=== PATIENT | female | born 1995 | race Caucasian/White ===

== ENCOUNTER 2016-09-07 20:52 | Emergency (ER) | payer OTHER ==
[2016-09-07 21:23] LABS: BILIRUBIN,URINE NEGATIVE (NEGATIVE)
[2016-09-07] MEDS ORDERED: ACETAMINOPHEN 325 MG TABLET PO STA (21:30)
[2016-09-07 21:33] LABS: HCG UR QUAL POSITIVE; UA w/ MICROSCOPIC CHARGE YES
--- NOTE | 2016-09-07 21:33 | ED Physician Documentation ---
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 Patient states that her lmp was last month about 5 weeks ago. Patient has taken 3 positive home tests. patient saw her pmd today who comfirmed with a urine hcg in the office. Patient states that this evening she had some abdominal cramping and vaginal spotting. Patient states that her pain is across her lower abdomen but is worse on the right hand side. Review of Systems Constitutional: denies: Fever, Chills Eyes: denies: Loss of vision Ears: denies: Ear pain Nose: denies: Rhinorrhea / runny nose, Congestion, Epistaxis Throat: denies: Oral lesions / sores, Sore throat Cardiac: denies: Chest pain / pressure, Palpitations, Calf pain GI: reports: Abdominal Pain, Nausea, Vomiting. denies: Constipation, Diarrhea : reports: Vaginal bleeding. denies: Dysuria, Frequency Skin: denies: Rash, Lesions Musculoskeletal: denies: Extremity pain Neurologic: denies: Generalized weakness, Focal weakness, Numbness Immunocompromised: denies: Immunocompromised PD PAST MEDICAL HISTORY - Past Medical History Past Medical History: No - Past Surgical History Past Surgical History: No - Allergies Allergies/Adverse Reactions: Allergies Allergy/AdvReac Type Severity Reaction Status Date / Time No Known Drug Allergies Allergy Verified 09/07/16 21:01 - Social History Does the pt smoke?: No Smoking Status: Never smoker Does the pt drink ETOH?: No Does the pt have substance abuse?: No - Immunizations Immunizations are current?: Yes - POLST Patient has POLST: No PD ED PE NORMAL - Vitals Vital signs reviewed: Yes - General General: Alert and oriented X 3, Well developed/nourished - HEENT HEENT: Atraumatic, PERRL, Pharynx benign - Neck Neck: Supple, no meningeal sign, No JVD - Cardiac Cardiac: RRR, No murmur, No rub - Respiratory Respiratory: No respiratory distress, Clear bilaterally - Abdomen Abdomen: Soft, Non tender, Non distended - Derm Derm: Normal color, Warm and dry, No rash - Extremities Extremities: No deformity - Neuro Neuro: Alert and oriented X 3, 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, No motor deficit, No sensory deficit, Normal speech - Psych Psych: Normal mood, Normal affect PD ED PE EXPANDED - Abdomen Abdomen: Tender to palpation, RLQ, Suprapubic - Female Female : Adnexal Tenderness Results - Vitals Vitals: Vital Signs - 24 hr 09/07/16 09/07/16 20:58 23:17 Temperature 36.8 C Heart Rate 91 66 Respiratory 18 16 Rate Blood Pressure 129/75 108/64 O2 Saturation 100 96 Oxygen O2 Source Room air - Labs Labs: Laboratory Tests 09/07/16 09/07/16 09/07/16 21:06 21:31 21:31 WBC 13.1 H RBC 4.55 Hgb 13.3 Hct 40.2 MCV 88.3 MCH 29.2 MCHC 33.1 RDW 13.2 Plt Count 206 MPV 10.9 H Neut # 8.4 H Lymph # 3.2 [place] # 1.1 H Eos # 0.2 Baso # 0.0 Absolute Nucleated RBC 0.00 Nucleated RBCs 0.0 Sodium 137 Potassium 3.6 Chloride 104 Carbon Dioxide 24 Anion Gap 9.0 BUN 14 Creatinine 0.7 Estimated GFR (MDRD) 106 Glucose 97 Calcium 9.7 Total Bilirubin 0.6 AST 18 ALT 15 Alkaline Phosphatase 75 Total Protein 7.3 Albumin 4.3 Globulin 3.0 Albumin/Globulin Ratio 1.4 Lipase 22 HCG, Quant Urine Color YELLOW Urine Clarity CLEAR Urine pH 6.0 Ur Specific [place] 1.025 Urine Protein NEGATIVE Urine Glucose (UA) NEGATIVE Urine Ketones NEGATIVE Urine Occult Blood MODERATE H Urine Nitrite NEGATIVE Urine Bilirubin NEGATIVE Urine Urobilinogen 1 (NORMAL) Ur Leukocyte Esterase NEGATIVE Urine RBC 6-10 H Urine WBC 0-3 Ur Squamous Epith Cells FEW Squamous Urine Bacteria Few Ur Microscopic Review INDICATED Urine Culture Comments NOT INDICATED Urine HCG, Qual POSITIVE Blood Type 09/07/16 09/07/16 21:31 21:35 WBC RBC Hgb Hct MCV MCH MCHC RDW Plt Count MPV Neut # Lymph # [place] # Eos # Baso # Absolute Nucleated RBC Nucleated RBCs Sodium Potassium Chloride Carbon Dioxide Anion Gap BUN Creatinine Estimated GFR (MDRD) Glucose Calcium Total Bilirubin AST ALT Alkaline Phosphatase Total Protein Albumin Globulin Albumin/Globulin Ratio Lipase HCG, Quant 178.70 Urine Color Urine Clarity Urine pH Ur Specific [place] Urine Protein Urine Glucose (UA) Urine Ketones Urine Occult Blood Urine Nitrite Urine Bilirubin Urine Urobilinogen Ur Leukocyte Esterase Urine RBC Urine WBC Ur Squamous Epith Cells Urine Bacteria Ur Microscopic Review Urine Culture Comments Urine HCG, Qual Blood Type A POSITIVE - Rads (name of study) pelvic and abdominal ultrasound Radiology: Final report received (appendix not visualized, but no inflammatory changeds, normal appearance of uterus and ovaries.) PD MEDICAL DECISION MAKING - ED course Complexity details: reviewed results, re-evaluated patient, considered differential, d/w patient, d/w family ED course: Patient was seen and examined at bedside. IV access was gained and labs were drawn. Urine was collected. Patient was treated with tylenol for pain. Patient was found to have a leukocytosis and rlq pain, but beta was only 179, so abdominal ultrasound was ordered. patient showed no signs of appendicitis. Patient and family were made aware of the findings. Patient and family were given detailed discharge and return instructions. Patient required no further work up and was stable for discharge with outpatient follow up. Departure - Departure Disposition: 01 Home, Self Care Clinical Impression: Vaginal bleeding in Condition: Good Instructions: Bleeding Early Preg Follow-Up: primary,care provider [Other] - Tomorrow (call your pmd/ob to schedule a follow up beta hcg in 48-72 hours) Comments: Your diagnostics today were inconclusive. your beta hcg level was below 200 and so we would not expect to see anything on ultrasound. Your symptoms could be caused by implantation bleeding but more serious causes cannot be ruled out. You will need to follow up with your ob for repeat beta hcg in 48-72 hours. You may return to the emergency department for worsening bleeding, severe pain, syncope new, worsening or uncontrollable symptoms. Discharge Date/Time: 09/07/16 23:41
[2016-09-07] MEDS ORDERED: ACETAMINOPHEN 500 MG TABLET PO ONE ×2 (21:38→21:41)
[2016-09-07 21:44] LABS: WBC,URINE 0-3 /HPF (0-5)
[2016-09-07 21:45] LABS: UR CULTURE IF IND NOT INDICATED
[2016-09-07 21:49] LABS: BASOPHILS % (AUTO) 0.3 %; EOSINOPHILS # (AUTO) 0.2 10^3/uL (0.0-0.7); EOSINOPHILS % (AUTO) 1.9 %; HCT - HEMATOCRIT 40.2 % (37.0-47.0); HGB - HEMOGLOBIN 13.3 g/dL (12.0-16.0); LYMPHOCYTES # (AUTO) 3.2 10^3/uL (1.5-3.5); LYMPHOCYTES % (AUTO) 24.6 %; MEAN CORPUSCULAR HEMOGLOBIN 29.2 pg (27.0-31.0); MEAN CORPUSCULAR HGB CONC 33.1 g/dL (32.0-36.0); MEAN CORPUSCULAR VOLUME 88.3 fL (81.0-99.0); MEAN PLATELET VOLUME 10.9 fL (7.9-10.8); MONOCYTES # (AUTO) 1.1 10^3/uL (0.0-1.0); MONOCYTES % (AUTO) 8.5 %; NEUTROPHILS # (AUTO) 8.4 10^3/uL (1.5-6.6); NEUTROPHILS % (AUTO) 64.7 %; RED BLOOD COUNT 4.55 10^6/uL (4.20-5.40); RED CELL DISTRIBUTION WIDTH 13.2 % (12.0-15.0); UNCORRECTED WHITE BLOOD COUNT 13.1 x10^3/uL; WHITE BLOOD COUNT 13.1 x10^3/uL (4.8-10.8)
[2016-09-07 22:05] LABS: ALBUMIN/GLOBULIN RATIO 1.4 (1.0-2.2); BILIRUBIN,TOTAL 0.6 mg/dL (0.2-1.0); CALCIUM 9.7 mg/dL (8.5-10.3); CREATININE 0.7 mg/dL (0.4-1.0); POTASSIUM 3.6 mmol/L (3.5-5.0); TOTAL PROTEIN 7.3 g/dL (6.7-8.2)
[2016-09-07 23:18] VITALS: BP 108/64
--- NOTE | 2016-09-07 23:18 | Ultrasound Preliminary Report ---
Exam: US Abdomen Limited IMPRESSION: Appendix is not visualized. No significant right lower quadrant sonographic abnormalities . [facility] SITE ID: [id number]
--- NOTE | 2016-09-07 23:21 | Ultrasound Report ---
EXAM: Limited ABDOMINAL ultrasound EXAM DATE: 09/07/2016 10:54 PM. CLINICAL HISTORY: Right lower pain, leukocytosis. COMPARISON: None. TECHNIQUE: Real-time scanning was performed of the right lower quadrant with static images obtained. FINDINGS: APPENDIX: Not seen. COMPRESSION TOLERATED: Moderate ASSOCIATED FINDINGS: Lymph Nodes Seen: No Free Fluid/Complex Fluid Seen: None Thickened Bowel Wall Seen: None Other: None. IMPRESSION: Appendix is not visualized. No significant right lower quadrant sonographic abnormalities . [facility] Referring Provider Line: [phone] SITE ID: [id number]
--- NOTE | 2016-09-07 23:24 | Ultrasound Preliminary Report ---
Exam: US OB First Trimester IMPRESSION: 1. No intrauterine gestational sac demonstrated. Quantitative beta-hCG value is reported at 179 units . Typically, an intrauterine gestational sac is visualized at quantitative beta hCG values of 2000. 2. Otherwise normal appearance of the uterus and ovaries. [facility] SITE ID: [id number]
--- NOTE | 2016-09-07 23:27 | Ultrasound Report ---
EXAM: FIRST TRIMESTER OBSTETRIC ULTRASOUND (Less than 11 weeks) EXAM DATE: 09/07/2016 10:54 PM. CLINICAL HISTORY: , vaginal bleeding. Right adnexal tenderness. COMPARISONS: None. TECHNIQUE: Transabdominal ultrasound examination with static image documentation. CLINICAL DATES: LMP: 07/27/2016. Estimated gestational age: 6 weeks 0 days. Estimated due date: 05/03/2017. Uterus: Uterus is normal in position and normal in configuration. Uterus measures 7.5 x 3.8 x 4.6 cm . No evident uterine masses. Endometrium: No intrauterine gestational sac demonstrated. Endometrium measures 9.7 mm without suspic ious abnormality. Cervix: No suspicious lesion. Right Ovary: Normal in appearance measuring 3.1 x 2.5 x 2.0 cm. Left Ovary: Normal in appearance measuring 2.7 x 1.4 x 1.7 cm. Fluid: No signficant free fluid. Other: No other significant findings. IMPRESSION: 1. No intrauterine gestational sac demonstrated. Quantitative beta-hCG value is reported at 179 units . Typically, an intrauterine gestational sac is visualized at quantitative beta hCG values of 2000. 2. Otherwise normal appearance of the uterus and ovaries. [facility] Referring Provider Line: [phone] SITE ID: [id number]
== END 2016-09-07 23:41 | disposition home or self-care (01) ==
LOC: ED 20:52
DX: O20.9 Hemorrhage in early pregnancy, unspecified (principal); Z3A.01 Less than 8 weeks gestation of pregnancy
CPT/HCPCS: 36415; 76705; 76801; 80053; 81001; 81025; 83690; 84702; 85025; 86900; 86901; 99283; 99284; A9270; 81003; 87086

== ENCOUNTER 2016-09-09 08:53 | Emergency (ER) | payer OTHER ==
--- NOTE | 2016-09-09 09:53 | ED Physician Documentation ---
History of Present Illness - Stated complaint Stated Complaint: FEMALE /4WKS PG - Chief complaint Chief Complaint: Abd Pain - Additonal information Additional information: hx from pt LMP 4/6 approx 6 weeks EGA by dates seen 48hr ago for spotting and RLQ pain quant 178 sono non diag A + advised to fup OB for serial quant [place] be seen [place] September inc bleeding so back to ER pain midline now Review of Systems Constitutional: denies: Fever GI: reports: Abdominal Pain : reports: Vaginal bleeding, Now EGA Endocrine: denies: Easy bruising / bleeding Immunocompromised: denies: Immunocompromised PD PAST MEDICAL HISTORY - Past Surgical History Past Surgical History: No - Allergies Allergies/Adverse Reactions: Allergies Allergy/AdvReac Type Severity Reaction Status Date / Time No Known Drug Allergies Allergy Verified 09/09/16 10:23 - Social History Does the pt smoke?: No Smoking Status: Never smoker Does the pt drink ETOH?: No Does the pt have substance abuse?: No - Immunizations Immunizations are current?: Yes - POLST Patient has POLST: No PD ED PE NORMAL - Vitals Vital signs reviewed: Yes - Cardiac Cardiac: RRR - Respiratory Respiratory: No respiratory distress, Clear bilaterally - Abdomen Abdomen: Soft, Other (mild suprapubic TTP) - Neuro Neuro: Alert and oriented X 3 Results - Vitals Vitals: Vital Signs - 24 hr 09/09/16 09/09/16 08:57 11:23 Temperature 36.5 C Heart Rate 93 76 Respiratory 20 20 Rate Blood Pressure 118/76 117/68 O2 Saturation 98 97 Oxygen O2 Source Room air - Labs Labs: Laboratory Tests 09/09/16 09:40 HCG, Quant 104.30 - Rads (name of study) OB sono + TV Radiology: See rad report (no IUP) PD MEDICAL DECISION MAKING - ED course ED course: dropping quant open os neg sono = spont AB A+ no rhogam Departure - Departure Disposition: 01 Home, Self Care Clinical Impression: Spontaneous miscarriage Condition: Good Instructions: ED Miscarriage Completed Follow-Up: DONNY Gao [Provider Group] (for a recheck Sunday or Sunday ) Forms: Activity restrictions
--- NOTE | 2016-09-09 11:39 | Ultrasound Preliminary Report ---
Exam: US OB First Trimester IMPRESSION: 1. No intrauterine gestation demonstrated. Differential diagnosis includes very early intrauterine ge station, spontaneous and ectopic . Clinical and laboratory correlation recommended. 2. Otherwise, unremarkable pelvic ultrasound. [facility] SITE ID: [id number]
--- NOTE | 2016-09-09 11:41 | Ultrasound Report ---
REVISED: THIS REPORT WAS ORIGINALLY SIGNED ON 09/09/2016 @ 1141 ORDERS LINKED ON 09/24/2016 EXAM: FIRST TRIMESTER OBSTETRIC ULTRASOUND (Less than 11 weeks) EXAM DATE: 09/09/2016 11:08 AM. CLINICAL HISTORY: Early preg pain bleed concern for ectopic. LMP: 07/27/2016. COMPARISONS: 09/07/2016. TECHNIQUE: Transabdominal and transvaginal ultrasound examination with static image documentation. CLINICAL DATES: EGA 6 weeks 2 days with LORNA 05/03/2017 based on LMP. ASSESSMENT: Gestational Sac: None demonstrated. Embryo: Not demonstrated. Cardiac activity: Not demonstrated. Yolk sac: Not demonstrated. MATERNAL STRUCTURES: Uterus: Anteverted/Retroverted. Unremarkable. Cervix: Closed. Right Ovary: 2.8 x 1.8 x 2.3 cm, volume 6.0 cc. Normal echotexture and blood flow. 0.9 cm simple follicle. Left Ovary: 2.3 x 1.3 x 1.5 cm, volume 2.9 cc. Unremarkable. Free Fluid: None. Other: None. IMPRESSION: 1. No intrauterine gestation demonstrated. Differential diagnosis includes very early intrauterine gestation, spontaneous and ectopic . Clinical and laboratory correlation recommended. 2. Otherwise, unremarkable pelvic ultrasound. [facility] Referring Provider Line: [phone] SITE ID: [id number]
[2016-09-09 12:31] VITALS: BP 133/88
== END 2016-09-09 12:32 | disposition home or self-care (01) ==
LOC: ED 08:53
DX: O03.9 Complete or unspecified spontaneous abortion without complication (principal)
CPT/HCPCS: 36415; 76801; 76817; 84702; 87491; 87591; 99284

== ENCOUNTER 2016-09-11 15:23 | Emergency (ER) | payer OTHER | END 2016-09-11 17:21 | disposition home or self-care (01) | DX: O03.9 Complete or unspecified spontaneous abortion without complication (principal); F43.21 Adjustment disorder with depressed mood; R03.0 Elevated blood-pressure reading, without diagnosis of hypertension ==

== ENCOUNTER 2017-10-14 | Emergency (ER) | END 2017-10-15 01:05 | disposition home or self-care (01) ==

== ENCOUNTER 2017-12-05 17:52 | Emergency (ER) | payer OTHER ==
[2017-12-05] MEDS ORDERED: predniSONE 20 MG TABLET PO STA (20:06)
--- NOTE | 2017-12-05 20:08 | ED Physician Documentation ---
PD HPI LOWER EXT INJURY - Stated complaint Stated Complaint: LT LEG INSECT BITE - Chief complaint Chief Complaint: Ext Problem - History obtained from History obtained from: Patient - History of Present Illness PD HPI LOW EXT INJURY LOCATION: Left (She got a bug bite on her left leg while walking the dog yesterday was much smaller yesterday but large today. No shortness of breath, chest pain, throat pain, Or other rash.) Review of Systems Constitutional: denies: Fever, Chills GI: denies: Abdominal Pain, Nausea, Vomiting : denies: Now EGA PD PAST MEDICAL HISTORY - Past Medical History Past Medical History: No - Past Surgical History Past Surgical History: No - Present Medications Home Medications: Ambulatory Orders Medication Instructions Recorded Confirmed predniSONE [Deltasone] 60 mg PO DAILY 3 Days tablet 12/05/17 - Allergies Allergies/Adverse Reactions: Allergies Allergy/AdvReac Type Severity Reaction Status Date / Time No Known Drug Allergies Allergy Verified 12/05/17 17:58 - Social History Does the pt smoke?: No Smoking Status: Never smoker Does the pt drink ETOH?: Yes Does the pt have substance abuse?: No - Immunizations Immunizations are current?: Yes - POLST Patient has POLST: No PD ED PE NORMAL - Vitals Vital signs reviewed: Yes - General General: Alert and oriented X 3, No acute distress - Derm Derm: Other (There is a well-demarcated area of angioedema consistent with bug bite measuring about the size of the palm over the left posterior thigh.) - Neuro Neuro: Alert and oriented X 3, Normal speech Results - Vitals Vitals: Vital Signs - 24 hr 12/05/17 17:56 Temperature 36.2 C L Heart Rate 55 L Respiratory 16 Rate Blood Pressure 126/66 O2 Saturation 97 Oxygen O2 Source Room air PD MEDICAL DECISION MAKING - Sepsis Event Vital Signs: Vital Signs - 24 hr 12/05/17 17:56 Temperature 36.2 C L Heart Rate 55 L Respiratory 16 Rate Blood Pressure 126/66 O2 Saturation 97 Oxygen O2 Source Room air Departure - Departure Disposition: 01 Home, Self Care Clinical Impression: Insect bite Qualifiers: Encounter type: initial encounter Qualified Code(s): W57.XXXA - Bitten or stung by nonvenomous insect and other nonvenomous arthropods, initial encounter Condition: Good Record reviewed to determine appropriate education?: Yes Instructions: ED Bite Sting Insect Local Allergic React Prescriptions: predniSONE [Deltasone] 60 mg PO DAILY 3 Days tablet Comments: Call your doctor to arrange a follow-up appointment, make the next available appointment. In the interim, return anytime if worse or if new symptoms develop.
[2017-12-05 20:22] VITALS: BP 114/68
== END 2017-12-05 20:22 | disposition home or self-care (01) ==
LOC: ED 17:52
DX: S70.362A Insect bite (nonvenomous), left thigh, initial encounter (principal); W57.XXXA Bitten or stung by nonvenomous insect and other nonvenomous arthropods, initial encounter; Y93.K1 Activity, walking an animal
CPT/HCPCS: 99283; J7512

== ENCOUNTER 2018-01-05 11:03 | Emergency (ER) | payer OTHER ==
--- NOTE | 2018-01-05 12:27 | ED Physician Documentation ---
PD HPI ABD PAIN - Stated complaint Stated Complaint: WEAKNESS/DIZZY/CRAMPING ON LT SIDE - Chief complaint Chief Complaint: Abd Pain - History obtained from History obtained from: Patient, Family - History of Present Illness Timing - onset: How many days ago (3) Timing - duration: Days (3) Timing - details: Gradual onset Pain level max: 5 Pain level now: 4 Quality: Cramping, Aching, Pain Location: LLQ Radiation: No: Chest, , Lower back, Left flank, Left shoulder, Right flank, Right shoulder, Upper back Improved by: Laying still Worsened by: Moving, Palpation Associated symptoms: Nausea, Vomiting. No: Fever, Hematemesis, Diarrhea, Constipation, Melena, Hematochezia, Dysuria, Hematuria, Vaginal bleeding, Vaginal dc - Additional information Additional information: , approx 6 weeks EGA. Review of Systems Constitutional: denies: Fever, Chills Ears: denies: Ear pain Nose: denies: Rhinorrhea / runny nose, Congestion Throat: denies: Sore throat Respiratory: denies: Cough GI: reports: Nausea, Vomiting. denies: Diarrhea Skin: denies: Rash Musculoskeletal: denies: Neck pain, Back pain Neurologic: denies: Headache PD PAST MEDICAL HISTORY - Past Medical History Past Medical History: No - Past Surgical History Past Surgical History: No - Present Medications Home Medications: Ambulatory Orders Medication Instructions Recorded Confirmed Pnv95/Ferrous Fumarate/FA 1 each PO DAILY 01/05/18 01/05/18 [ Formula] - Allergies Allergies/Adverse Reactions: Allergies Allergy/AdvReac Type Severity Reaction Status Date / Time No Known Drug Allergies Allergy Verified 01/05/18 11:11 - Social History Does the pt smoke?: No Smoking Status: Never smoker Does the pt drink ETOH?: No Does the pt have substance abuse?: No - Immunizations Immunizations are current?: Yes - POLST Patient has POLST: No PD ED PE NORMAL - Vitals Vital signs reviewed: Yes - General General: Alert and oriented X 3, No acute distress - HEENT HEENT: Moist mucous membranes - Neck Neck: Supple, no meningeal sign - Cardiac Cardiac: RRR - Respiratory Respiratory: No respiratory distress, Clear bilaterally - Abdomen Abdomen: Soft, Non tender, Non distended - Back Back: No spinal TTP - Derm Derm: Warm and dry - Extremities Extremities: No edema - Neuro Neuro: Alert and oriented X 3 - Psych Psych: Normal mood, Normal affect Results - Vitals Vitals: Vital Signs - 24 hr 01/05/18 01/05/18 01/05/18 11:07 12:38 14:37 Temperature 37 C Heart Rate 63 77 70 Respiratory 18 14 16 Rate Blood Pressure 120/77 153/89 H 120/74 O2 Saturation 99 98 98 Oxygen O2 Source Room air - Labs Labs: Laboratory Tests 01/05/18 01/05/18 01/05/18 12:38 12:39 12:39 WBC 10.9 H RBC 4.65 Hgb 13.9 Hct 41.4 MCV 89.1 MCH 29.9 MCHC 33.6 RDW 13.4 Plt Count 230 MPV 9.9 Neut # (Auto) 7.6 H Lymph # (Auto) 2.4 [place] # (Auto) 0.7 Eos # (Auto) 0.2 Baso # (Auto) 0.0 Absolute Nucleated RBC 0.01 Nucleated RBC % 0.1 Sodium 135 Potassium 3.6 Chloride 102 Carbon Dioxide 25 Anion Gap 8.0 BUN 7 Creatinine 0.7 Estimated GFR (MDRD) 104 Glucose 96 Calcium 9.2 Total Bilirubin 0.5 AST 19 ALT 14 Alkaline Phosphatase 60 Total Protein 7.5 Albumin 4.2 Globulin 3.3 Albumin/Globulin Ratio 1.3 Lipase 28 HCG, Quant Urine Color YELLOW Urine Clarity CLEAR Urine pH 6.5 Ur Specific [place] 1.020 Urine Protein NEGATIVE Urine Glucose (UA) NEGATIVE Urine Ketones [place]ACE Urine Occult Blood NEGATIVE Urine Nitrite NEGATIVE Urine Bilirubin NEGATIVE Urine Urobilinogen 0.2 (NORMAL) Ur Leukocyte Esterase NEGATIVE Ur Microscopic Review NOT INDICATED Urine Culture Comments NOT INDICATED 01/05/18 12:39 WBC RBC Hgb Hct MCV MCH MCHC RDW Plt Count MPV Neut # (Auto) Lymph # (Auto) [place] # (Auto) Eos # (Auto) Baso # (Auto) Absolute Nucleated RBC Nucleated RBC % Sodium Potassium Chloride Carbon Dioxide Anion Gap BUN Creatinine Estimated GFR (MDRD) Glucose Calcium Total Bilirubin AST ALT Alkaline Phosphatase Total Protein Albumin Globulin Albumin/Globulin Ratio Lipase HCG, Quant 96124.00 Urine Color Urine Clarity Urine pH Ur Specific [place] Urine Protein Urine Glucose (UA) Urine Ketones Urine Occult Blood Urine Nitrite Urine Bilirubin Urine Urobilinogen Ur Leukocyte Esterase Ur Microscopic Review Urine Culture Comments - Rads (name of study) pelvic US Radiology: Prelim report reviewed, EMP read contemporaneously, See rad report (Single viable intrauterine at EGA 5 weeks 6 days with LORNA 09/01/2018 based on crown-rump length, which is concordant with clinical dates. ) PD MEDICAL DECISION MAKING - ED course Complexity details: reviewed results, re-evaluated patient, considered differential, d/w patient, d/w family ED course: Patient is a 22-year-old female who presents to the emergency department with abdominal pain and early . She has an IUP on ultrasound approximately 5 weeks and 6 days old. This is concordant with her dates. She is tolerating p.o. without difficulty. Abdomen is soft, nontender nondistended on serial exam. No evidence of ectopic. Will have her follow-up with her OB for further care. Patient counseled regarding signs and symptoms for which I believe and urgent re-evaluation would be necessary. Patient with good understanding of and agreement to plan and is comfortable going home at this time This document was made in part using voice recognition software. While efforts are made to proofread this document, sound alike and grammatical errors may occur. - Sepsis Event Vital Signs: Vital Signs - 24 hr 01/05/18 01/05/18 01/05/18 11:07 12:38 14:37 Temperature 37 C Heart Rate 63 77 70 Respiratory 18 14 16 Rate Blood Pressure 120/77 153/89 H 120/74 O2 Saturation 99 98 98 Oxygen O2 Source Room air Departure - Departure Disposition: 01 Home, Self Care Clinical Impression: Abdominal pain affecting Qualifiers: Weeks of gestation: less than 8 weeks Qualified Code(s): Z3A.01 - Less than 8 weeks gestation of Condition: Good Instructions: ED Preg Established Normal Sxs Follow-Up: SARA FAUSTIN PA-C [Primary Care Provider] - Within 1 week Comments: Return if you worsen. You are approximately 5w4d . Drink plenty of fluids. Discharge Date/Time: 01/05/18 15:11
[2018-01-05] MEDS ORDERED: METOCLOPRAMIDE 10 MG TABLET PO STA (12:40)
[2018-01-05 12:58] LABS: BILIRUBIN,URINE NEGATIVE (NEGATIVE); GLUCOSE, URINE (UA) NEGATIVE (NEGATIVE); KETONES,URINE (UA) TRACE mg/dL (NEGATIVE); LEUKOCYTE ESTERASE, URINE NEGATIVE (NEGATIVE); NITRITE,URINE NEGATIVE (NEGATIVE); OCCULT BLOOD,URINE NEGATIVE (NEGATIVE); PH,URINE 6.5 PH (5.0-7.5); PROTEIN,URINE NEGATIVE (NEGATIVE); UROBILINOGEN,URINE 0.2 (NORMAL) E.U./dL (NORMAL)
[2018-01-05 12:58] LABS: BASOPHILS % (AUTO) 0.4 %; EOSINOPHILS # (AUTO) 0.2 10^3/uL (0.0-0.7); EOSINOPHILS % (AUTO) 1.8 %; HGB - HEMOGLOBIN 13.9 g/dL (12.0-16.0); LYMPHOCYTES # (AUTO) 2.4 10^3/uL (1.5-3.5); LYMPHOCYTES % (AUTO) 22.3 %; MEAN CORPUSCULAR HEMOGLOBIN 29.9 pg (27.0-31.0); MEAN CORPUSCULAR HGB CONC 33.6 g/dL (32.0-36.0); MEAN CORPUSCULAR VOLUME 89.1 fL (81.0-99.0); MEAN PLATELET VOLUME 9.9 fL (7.9-10.8); MONOCYTES # (AUTO) 0.7 10^3/uL (0.0-1.0); MONOCYTES % (AUTO) 6.1 %; NEUTROPHILS # (AUTO) 7.6 10^3/uL (1.5-6.6); NEUTROPHILS % (AUTO) 69.4 %; PLT - PLATELET COUNT 230 10^3/uL (130-450); RED BLOOD COUNT 4.65 10^6/uL (4.20-5.40); RED CELL DISTRIBUTION WIDTH 13.4 % (12.0-15.0); WHITE BLOOD COUNT 10.9 x10^3/uL (4.8-10.8)
[2018-01-05 13:01] LABS: CLARITY,URINE CLEAR (CLEAR)
[2018-01-05 13:15] LABS: ALBUMIN 4.2 g/dL (3.2-5.5); ALBUMIN/GLOBULIN RATIO 1.3 (1.0-2.2); BILIRUBIN,TOTAL 0.5 mg/dL (0.2-1.0); CALCIUM 9.2 mg/dL (8.5-10.3); CREATININE 0.7 mg/dL (0.4-1.0); TOTAL PROTEIN 7.5 g/dL (6.7-8.2)
[2018-01-05 14:39] VITALS: BP 120/74
--- NOTE | 2018-01-05 14:46 | Ultrasound Report ---
Reason: LLQ abd pain, 6 weeks preg Procedure Date: 01/05/2018 Accession Number: [id number] / [id number] Procedure: US - OB First Trimester CPT Code: FULL RESULT: EXAM: FIRST TRIMESTER OBSTETRIC ULTRASOUND (Less than 11 weeks) EXAM DATE: 01/05/2018 02:37 PM. CLINICAL HISTORY: LLQ abd pain, 6 weeks preg. LMP: 11/25/2017, EGA 5 weeks 6 days. COMPARISONS: None. TECHNIQUE: Transabdominal and transvaginal ultrasound examination with static image documentation. CLINICAL DATES: EGA 5 weeks 6 days with LORNA 09/01/2018 based on LMP/ . ASSESSMENT: Gestational Sac: Single intrauterine. Mean gestational sac diameter: 14 mm = 5 weeks 4 days. Embryo: CRL (crown-rump length) 2.8 mm = 5 weeks 6 days. Cardiac activity: 103 beats per minute. Yolk sac: 2.4 mm. Amniotic fluid: Not accurately assessed at this gestational age. Early placenta: Not visible at this gestational age. Other: No perigestational fluid collection demonstrated. MATERNAL STRUCTURES: Uterus: Anteverted . Unremarkable. Cervix: Closed. Right Ovary/Adnexa: The ovary measures 3.3 x 2.9 x 2.7 cm, volume 18.5 cc. Corpus luteal cyst 1.7 x 1.5 x 1.8 cm. Left Ovary/Adnexa: The ovary measures 2.8 x 1.8 x 1.4 cm, volume 3.6 cc. Free Fluid: None. Unremarkable. Other: None. IMPRESSION: 1. Single viable intrauterine at EGA 5 weeks 6 days with LORNA 09/01/2018 based on crown-rump length, which is concordant with clinical dates. [facility]
== END 2018-01-05 15:11 | disposition home or self-care (01) ==
LOC: ED 11:03
DX: O99.89 Other specified diseases and conditions complicating pregnancy, childbirth and the puerperium (principal); R10.9 Unspecified abdominal pain; Z3A.01 Less than 8 weeks gestation of pregnancy
CPT/HCPCS: 36415; 76801; 76830; 80053; 81003; 83690; 84702; 85025; 99283; A9270; 81001; 87086

== ENCOUNTER 2018-03-22 21:42 | Emergency (ER) | payer OTHER ==
[2018-03-22 21:50] VITALS: BP 131/84
--- NOTE | 2018-03-22 21:51 | ED Physician Documentation ---
PD HPI FEMALE - Stated complaint Stated Complaint: FEMALE /17WK OB - Chief complaint Chief Complaint: Abd Pain PD PAST MEDICAL HISTORY - Past Surgical History Past Surgical History: No - Present Medications Home Medications: Ambulatory Orders Medication Instructions Recorded Confirmed Pnv95/Ferrous Fumarate/FA 1 each PO DAILY 01/05/18 01/05/18 [ Formula] - Allergies Allergies/Adverse Reactions: Allergies Allergy/AdvReac Type Severity Reaction Status Date / Time No Known Drug Allergies Allergy Verified 03/22/18 21:50 - Social History Does the pt smoke?: No Smoking Status: Never smoker Does the pt drink ETOH?: No Does the pt have substance abuse?: No - Immunizations Immunizations are current?: Yes - POLST Patient has POLST: No Results - Vitals Vitals: Vital Signs - 24 hr 03/22/18 21:46 Temperature 36.6 C Heart Rate 90 Respiratory 16 Rate Blood Pressure 131/84 H O2 Saturation 98 Oxygen O2 Source Room air
--- NOTE | 2018-03-22 22:00 | ED Physician Documentation ---
PD HPI FEMALE - Stated complaint Stated Complaint: FEMALE /17WK OB - Chief complaint Chief Complaint: Abd Pain - History obtained from History obtained from: Patient, Family () - History of Present Illness Timing - onset: Today ( at 17 weeks with pelvic cramping today. No associated bleeding or urinary complaints. It was worse earlier in the day and has improved but not gone away now.) Review of Systems Constitutional: denies: Fever, Chills GI: denies: Nausea, Vomiting, Diarrhea : denies: Dysuria, Frequency PD PAST MEDICAL HISTORY - Past Surgical History Past Surgical History: No - Present Medications Home Medications: Ambulatory Orders Medication Instructions Recorded Confirmed Pnv95/Ferrous Fumarate/FA 1 each PO DAILY 01/05/18 01/05/18 [ Formula] - Allergies Allergies/Adverse Reactions: Allergies Allergy/AdvReac Type Severity Reaction Status Date / Time No Known Drug Allergies Allergy Verified 03/22/18 21:50 - Social History Does the pt smoke?: No Smoking Status: Never smoker Does the pt drink ETOH?: No Does the pt have substance abuse?: No - Immunizations Immunizations are current?: Yes - POLST Patient has POLST: No PD ED PE NORMAL - Vitals Vital signs reviewed: Yes - General General: Alert and oriented X 3, No acute distress - Abdomen Abdomen: Normal bowel sounds, Soft, Non tender - Female Female : Other (Bedside ultrasound demonstrates single live intrauterine with heart rate of 146 and normal motion) - Neuro Neuro: Alert and oriented X 3, Normal speech - Psych Psych: Normal mood, Normal affect Results - Vitals Vitals: Vital Signs - 24 hr 03/22/18 21:46 Temperature 36.6 C Heart Rate 90 Respiratory 16 Rate Blood Pressure 131/84 H O2 Saturation 98 Oxygen O2 Source Room air - Labs Labs: Laboratory Tests 03/22/18 22:00 Urine Color YELLOW Urine Clarity CLEAR Urine pH 7.0 Ur Specific [place] <=1.005 Urine Protein NEGATIVE Urine Glucose (UA) NEGATIVE Urine Ketones NEGATIVE Urine Occult Blood NEGATIVE Urine Nitrite NEGATIVE Urine Bilirubin NEGATIVE Urine Urobilinogen 0.2 (NORMAL) Ur Leukocyte Esterase NEGATIVE Ur Microscopic Review NOT INDICATED Urine Culture Comments NOT INDICATED - Rads (name of study) OB limited sono Radiology: EMP read indepedently (see physical) Departure - Departure Disposition: 01 Home, Self Care Clinical Impression: Cramping affecting , antepartum Condition: Good Record reviewed to determine appropriate education?: Yes Comments: Return if you develop worsening cramps, if you lose fluid or blood, Or other new or concerning symptoms arise. Call your doctor to arrange a follow-up appointment, make the next available appointment. In the interim, return anytime if worse or if new symptoms develop.
[2018-03-22 22:16] LABS: BILIRUBIN,URINE NEGATIVE (NEGATIVE); GLUCOSE, URINE (UA) NEGATIVE (NEGATIVE); KETONES,URINE (UA) NEGATIVE (NEGATIVE); LEUKOCYTE ESTERASE, URINE NEGATIVE (NEGATIVE); NITRITE,URINE NEGATIVE (NEGATIVE); OCCULT BLOOD,URINE NEGATIVE (NEGATIVE); PROTEIN,URINE NEGATIVE (NEGATIVE); UROBILINOGEN,URINE 0.2 (NORMAL) E.U./dL (NORMAL)
[2018-03-22 22:19] LABS: CLARITY,URINE CLEAR (CLEAR)
== END 2018-03-22 22:28 | disposition home or self-care (01) ==
LOC: ED 21:42
DX: O99.89 Other specified diseases and conditions complicating pregnancy, childbirth and the puerperium (principal); R10.2 Pelvic and perineal pain; Z3A.17 17 weeks gestation of pregnancy
CPT/HCPCS: 81001; 81003; 87086; 99282; 99283

== ENCOUNTER 2021-01-01 19:09 | Emergency (ER) | payer OTHER ==
[2021-01-01 20:26] LABS: BASOPHILS # (AUTO) 0.1 10^3/uL (0.0-0.1); BASOPHILS % (AUTO) 0.3 %; EOSINOPHILS # (AUTO) 0.4 10^3/uL (0.0-0.7); EOSINOPHILS % (AUTO) 2.4 %; HCT - HEMATOCRIT 40.5 % (37.0-47.0); HGB - HEMOGLOBIN 13.1 g/dL (12.0-16.0); LYMPHOCYTES # (AUTO) 4.4 10^3/uL (1.5-3.5); MEAN CORPUSCULAR HEMOGLOBIN 29.8 pg (27.0-31.0); MEAN CORPUSCULAR HGB CONC 32.3 g/dL (32.0-36.0); MEAN CORPUSCULAR VOLUME 92.3 fL (81.0-99.0); MEAN PLATELET VOLUME 12.1 fL (7.9-10.8); MONOCYTES # (AUTO) 0.9 10^3/uL (0.0-1.0); MONOCYTES % (AUTO) 6.1 %; PLT - PLATELET COUNT 224 10^3/uL (130-450); RED BLOOD COUNT 4.39 10^6/uL (4.20-5.40); RED CELL DISTRIBUTION WIDTH 13.2 % (12.0-15.0); WHITE BLOOD COUNT 14.8 x10^3/uL (4.8-10.8)
[2021-01-01] MEDS ORDERED: ONDANSETRON 4 MG/2 ML VIAL IVP STA ×2 (20:37→22:06)
[2021-01-01] MEDS ORDERED: SODIUM CHLORIDE 0.9% 1,000 ML IV STA (20:37)
[2021-01-01 20:40] LABS: ALBUMIN 4.2 g/dL (3.2-5.5); ALBUMIN/GLOBULIN RATIO 1.3 (1.0-2.2); BILIRUBIN,TOTAL 0.6 mg/dL (0.2-1.0); CALCIUM 9.2 mg/dL (8.5-10.3); CREATININE 0.8 mg/dL (0.4-1.0); POTASSIUM 3.5 mmol/L (3.5-5.0); TOTAL PROTEIN 7.4 g/dL (6.7-8.2)
[2021-01-01 20:48] LABS: BILIRUBIN,URINE NEGATIVE (NEGATIVE); GLUCOSE, URINE (UA) NEGATIVE (NEGATIVE); KETONES,URINE (UA) NEGATIVE (NEGATIVE); LEUKOCYTE ESTERASE, URINE NEGATIVE (NEGATIVE); NITRITE,URINE NEGATIVE (NEGATIVE); OCCULT BLOOD,URINE NEGATIVE (NEGATIVE); PROTEIN,URINE NEGATIVE (NEGATIVE); UROBILINOGEN,URINE 0.2 (NORMAL) E.U./dL (NORMAL)
[2021-01-01 20:54] LABS: CLARITY,URINE CLEAR (CLEAR); HCG UR QUAL NEGATIVE
[2021-01-01] MEDS ORDERED: IOPAMIDOL-300 100 ML VIAL ONE (21:01)
--- NOTE | 2021-01-01 21:09 | ED Physician Documentation ---
History of Present Illness - Stated complaint Stated Complaint: ABD PX, NAUSEA, WEAK - Chief complaint Chief Complaint: Abd Pain - Additonal information Additional information: 25-year-old female presents emergency department for evaluation of 3 days generalized abdominal cramping. She reports that the day the symptoms began she had a very thin small stool that was somewhat bloody. Since then she has had a lot of abdominal pressure especially on her left side. Today she has had uncontrolled nausea and vomiting. Though she has been eating she constantly feels empty and hungry. There have been no fevers. She denies dysuria urgency or frequency. No pertinent past surgical history. Review of Systems Constitutional: denies: Fever, Chills Eyes: reports: Reviewed and negative Ears: reports: Reviewed and negative Nose: reports: Reviewed and negative Throat: reports: Reviewed and negative Cardiac: reports: Reviewed and negative Respiratory: reports: Reviewed and negative GI: reports: Abdominal Pain, Nausea, Vomiting : denies: Dysuria, Frequency, Hesitancy Skin: denies: Rash, Lesions Musculoskeletal: denies: Neck pain, Back pain Neurologic: reports: Reviewed and negative PD PAST MEDICAL HISTORY - Past Surgical History Past Surgical History: No - Present Medications Home Medications: Ambulatory Orders Medication Instructions Recorded Confirmed Ondansetron Odt [Zofran] 4 mg TL Q6H PRN #10 tablet 01/01/21 - Allergies Allergies/Adverse Reactions: Allergies Allergy/AdvReac Type Severity Reaction Status Date / Time No Known Drug Allergies Allergy Verified 01/01/21 19:16 - Social History Does the pt smoke?: No Smoking Status: Never smoker Does the pt drink ETOH?: No Does the pt have substance abuse?: No - Immunizations Immunizations are current?: Yes - POLST Patient has POLST: No PD ED PE EXPANDED - General General: Alert, No acute distress - Cardiac Cardiac: Regular Rate, Radial strong equal, Cap refill < 2 sec - Respiratory Respiratory: Clear to ausultation kurt. No: Distress, Labored - Abdomen Abdomen: Tender to palpation (Generalized abdominal tenderness though most predominant on the left side. There is no guarding or rebound.). No: Suprapubic, Hepatomegaly, Splenomegaly - Derm Derm: Normal color, Warm and dry. No: Rash - Extremities Extremities: Normal. No: Deformity, Tenderness - Neuro Neuro: Alert and Oriented X 3, CNII-XII intact - GCS Eye Opening: Spontaneous Motor: Obeys Commands Verbal: Oriented Total: 15 Results - Vitals Vitals: Vital Signs - 24 hr 01/01/21 19:13 Temperature 37 C Heart Rate 79 Respiratory 16 Rate Blood Pressure 130/71 O2 Saturation 97 Oxygen O2 Source Room air - Labs Labs: Laboratory Tests 01/01/21 01/01/21 01/01/21 20:22 20:22 20:32 WBC 14.8 H RBC 4.39 Hgb 13.1 Hct 40.5 MCV 92.3 MCH 29.8 MCHC 32.3 RDW 13.2 Plt Count 224 MPV 12.1 H Neut # (Auto) 9.0 H Lymph # (Auto) 4.4 H [place] # (Auto) 0.9 Eos # (Auto) 0.4 Baso # (Auto) 0.1 Absolute Nucleated RBC 0.00 Nucleated RBC % 0.0 Sodium 137 Potassium 3.5 Chloride 105 Carbon Dioxide 22 Anion Gap 10.0 BUN 9 Creatinine 0.8 Estimated GFR (MDRD) 87 L Glucose 98 Calcium 9.2 Total Bilirubin 0.6 AST 19 ALT 15 Alkaline Phosphatase 59 Total Protein 7.4 Albumin 4.2 Globulin 3.2 Albumin/Globulin Ratio 1.3 Lipase 26 Urine Color YELLOW Urine Clarity CLEAR Urine pH 6.0 Ur Specific [place] 1.025 Urine Protein NEGATIVE Urine Glucose (UA) NEGATIVE Urine Ketones NEGATIVE Urine Occult Blood NEGATIVE Urine Nitrite NEGATIVE Urine Bilirubin NEGATIVE Urine Urobilinogen 0.2 (NORMAL) Ur Leukocyte Esterase NEGATIVE Ur Microscopic Review NOT INDICATED Urine Culture Comments NOT INDICATED Urine HCG, Qual NEGATIVE - Rads (name of study) Ct abd Radiology: Final report received (No acute intra-abdominal process identified. Normal appendix. No findings of kidney stones UPJ obstruction.) PD MEDICAL DECISION MAKING - ED course Complexity details: reviewed results, d/w patient ED course: 25-year-old female presents the emergency department with 3 days of generalized abdominal pain, some loose stools and nausea vomiting. Screening labs showed a moderate leukocytosis. There was no findings of urinary infection. Given the generalized abdominal tenderness a CT scan was completed that did not show any worrisome findings. I suspect that she most likely has a viral enteritis. She was given a liter of fluids here in the emergency department as well as Zofran with good control of the symptoms. Recommend clear diet for 24 to 48 hours then slowly advance. Return to the ER if worsening Departure - Departure Disposition: 01 Home, Self Care Clinical Impression: Abdominal pain Qualifiers: Abdominal location: generalized Qualified Code(s): R10.84 - Generalized abdominal pain Nausea & vomiting Qualifiers: Vomiting type: unspecified Vomiting Intractability: non-intractable Qualified Code(s): R11.2 - Nausea with vomiting, unspecified Condition: Stable Record reviewed to determine appropriate education?: Yes Instructions: ED Abdominal Pain Unkn Cause Follow-Up: Nica Beauchamp ARNP [Primary Care Provider] - Prescriptions: Ondansetron Odt [Zofran] 4 mg TL Q6H PRN #10 tablet PRN Reason: Nausea / Vomiting Comments: You were seen in the emergency department today for abdominal pain, cramping as well as nausea and vomiting. Your screening labs were all essentially normal with the exception of a mildly elevated white blood cell count. Your urine showed no signs of infection. We did do a CT of the abdomen that did not show any worrisome process. Your kidneys, appendix gallbladder ovaries are all essentially normal. You most likely have a virus that is been causing the cramping and vomiting. I would like you to fill the prescription for the Zofran tomorrow and take 2-3 times a day for the next 24 to 48 hours. I recommend that you sip clear liquids and then slowly advance your diet with bananas, rice applesauce and toast over the next 72 hours. If at any point you find that your symptoms are worsening, you are having sudden severe or different abdominal pain, uncontrolled vomiting then please return immediately to the ER for a second evaluation
[2021-01-01] MEDS ORDERED: IOPAMIDOL-300 100 ML VIAL IVP ONE (21:34)
--- NOTE | 2021-01-01 21:58 | CT Report ---
PROCEDURE: Abdomen/Pelvis W INDICATIONS: abdomianl pain, n/v CONTRAST: IV CONTRAST: Isovue 300 ml: 100 PO CONTRAST: *NO PO CONTRAST TECHNIQUE: After the administration of IV contrast, 5 mm thick sections acquired from the diaphragms to the symp hysis. 5 mm thick coronal and sagittal reformats were acquired. For radiation dose reduction, the f ollowing was used: automated exposure control, adjustment of mA and/or kV according to patient size. COMPARISON: None. FINDINGS: ABDOMEN: Lung bases: Normal Heart:Normal in size. No pericardial effusion. Liver: Normal. Gallbladder: Decompressed otherwise unremarkable Bile ducts: Normal. Pancreas: Normal. Spleen: Normal. Adrenals: Normal. Kidneys and ureters: Normal. Stomach and duodenum: Normal. Bowel: Normal. Normal appearance of the appendix. Other: No free fluid or air. Abdominal nodes: Normal. Aorta: Normal in size. IVC: Normal. Ventral wall: Normal. PELVIS: Bladder: Normal. Pelvic nodes: Normal. Inguinal: No hernia. Bones: No vertebral body compression fracture. No suspicious bone lesion. IMPRESSION: No acute abnormality. Normal appearance of the appendix. Reviewed by: Marty Mehta MD on 01/01/2021 9:57 PM PDT Approved by: Marty Mehta MD on 01/01/2021 9:57 PM PDT Station ID: [id number]
[2021-01-01] MEDS ORDERED: ONDANSETRON ODT 4 MG TABLET TL STA (22:17)
[2021-01-01 22:21] VITALS: BP 124/77
== END 2021-01-01 22:26 | disposition home or self-care (01) ==
LOC: ED 19:09
DX: R10.84 Generalized abdominal pain (principal); R11.2 Nausea with vomiting, unspecified
CPT/HCPCS: 36415; 74177; 80053; 81003; 81025; 83690; 85025; 96374; 99284; Q0162; Q9967; 81001; 87086

== ENCOUNTER 2021-05-25 21:45 | Emergency (ER) | payer OTHER ==
[2021-05-25 22:09] LABS: BILIRUBIN,URINE NEGATIVE (NEGATIVE); GLUCOSE, URINE (UA) NEGATIVE (NEGATIVE); KETONES,URINE (UA) NEGATIVE (NEGATIVE); LEUKOCYTE ESTERASE, URINE TRACE (NEGATIVE); NITRITE,URINE NEGATIVE (NEGATIVE); OCCULT BLOOD,URINE NEGATIVE (NEGATIVE); PROTEIN,URINE NEGATIVE (NEGATIVE); UROBILINOGEN,URINE 0.2 (NORMAL) E.U./dL (NORMAL)
[2021-05-25 22:11] LABS: CLARITY,URINE CLEAR (CLEAR); HCG UR QUAL NEGATIVE
[2021-05-25 22:13] LABS: RED CELL DISTRIBUTION WIDTH 13.4 % (12.0-15.0)
[2021-05-25 22:17] LABS: BASOPHILS # (AUTO) 0.1 10^3/uL (0.0-0.1); BASOPHILS % (AUTO) 0.4 %; EOSINOPHILS # (AUTO) 0.3 10^3/uL (0.0-0.7); EOSINOPHILS % (AUTO) 2.3 %; HCT - HEMATOCRIT 38.6 % (37.0-47.0); LYMPHOCYTES # (AUTO) 5.2 10^3/uL (1.5-3.5); LYMPHOCYTES % (AUTO) 42.5 %; MEAN CORPUSCULAR HEMOGLOBIN 30.1 pg (27.0-31.0); MEAN CORPUSCULAR HGB CONC 33.7 g/dL (32.0-36.0); MEAN CORPUSCULAR VOLUME 89.4 fL (81.0-99.0); MONOCYTES # (AUTO) 0.7 10^3/uL (0.0-1.0); MONOCYTES % (AUTO) 5.6 %; NEUTROPHILS % (AUTO) 48.9 %; PLT - PLATELET COUNT 250 10^3/uL (130-450); RED BLOOD COUNT 4.32 10^6/uL (4.20-5.40); WHITE BLOOD COUNT 12.3 x10^3/uL (4.8-10.8)
[2021-05-25 22:19] LABS: BACTERIA,URINE Rare /HPF (None Seen); RBC,URINE 0-5 /HPF (0-5); SQUAMOUS EPITHELIAL CELL,UR FEW Squamous (<= Few)
[2021-05-25 22:24] LABS: ALBUMIN 4.3 g/dL (3.2-5.5); ALBUMIN/GLOBULIN RATIO 1.4 (1.0-2.2); BILIRUBIN,TOTAL 0.5 mg/dL (0.2-1.0); CALCIUM 9.1 mg/dL (8.5-10.3); POTASSIUM 3.4 mmol/L (3.5-5.0); TOTAL PROTEIN 7.4 g/dL (6.7-8.2)
[2021-05-25] MEDS ORDERED: IOVERSOL 320 100 ML VIAL IVP ONE (22:43)
[2021-05-25 22:44] LABS: DIFFERENTIAL COMMENT MANUAL=AUTO DIFF; PLATELET ESTIMATE, MANUAL NORMAL (130-450,000) (NORMAL); PLATELET MORPHOLOGY NORMAL APPEARANCE (NORMAL); RBC MORPHOLOGY (MULTIPLE) NORMAL APPEARANCE (NORMAL)
[2021-05-25] MEDS: SODIUM CHLORIDE 0.9% 1,000 ML IV STA (22:44)
[2021-05-25] MEDS: IOVERSOL 320 100 ML VIAL IVP ONE (23:04)
--- NOTE | 2021-05-25 23:35 | CT Report ---
PROCEDURE: Abdomen/Pelvis W INDICATIONS: LLQ abd pain CONTRAST: IV CONTRAST: Optiray 320 ml: 100 PO CONTRAST: *NO PO CONTRAST TECHNIQUE: After the administration of IV contrast, 5 mm thick sections acquired from the diaphragms to the symp hysis. 5 mm thick coronal and sagittal reformats were acquired. For radiation dose reduction, the f ollowing was used: automated exposure control, adjustment of mA and/or kV according to patient size. COMPARISON: CT abdomen pelvis 01/01/2021 FINDINGS: Image quality: Excellent. ABDOMEN: Lung bases: 3 mm left lower lobe lateral nodule on series 4 image 17 is unchanged. Heart size is norm al. Solid organs: Liver is at the upper limits of normal in size measuring 17 cm with mild steatosis. Th e spleen is normal in size and enhancement. Gallbladder is not visualized. Biliary system is non di lated. Pancreas enhances normally. No adrenal nodules. Kidneys demonstrate normal size and enhance ment, without hydronephrosis. Peritoneum and bowel: Bowel loops demonstrate normal wall thickness and caliber. No free fluid or a ir. Nodes and vessels: No retroperitoneal or mesenteric adenopathy by size criteria. Aorta and inferior vena cava are normal in size. Miscellaneous: Trace fat-containing ventral hernia. PELVIS: Genitourinary: Bladder wall thickness is normal. Miscellaneous: No inguinal hernias or adenopathy. Bones: No suspicious bony lesions. No vertebral body compression fractures. IMPRESSION: No visualized cause of lower quadrant pain. No acute intra-abdominal or pelvic process. Reviewed by: Maria Luisa Peace MD on 05/25/2021 11:34 PM PST Approved by: Maria Luias Peace MD on 05/25/2021 11:34 PM PST Station ID: [id number]
--- NOTE | 2021-05-25 23:36 | ED Physician Documentation ---
PD HPI ABD PAIN - Stated complaint Stated Complaint: LT SIDE PX - Chief complaint Chief Complaint: Abd Pain - Additional information Additional information: Patient is a 25-year-old female presenting with left lower quadrant abdominal pain x1 day. Pain began acutely this evening. Worse with movement. No alleviating factors. Denies fever, chills, nausea, vomiting, diarrhea, constipation, previous abdominal surgeries. Review of Systems Ten Systems: 10 systems reviewed and negative Constitutional: denies: Fever Eyes: denies: Loss of vision Ears: denies: Loss of hearing Nose: denies: Rhinorrhea / runny nose Throat: denies: Dental pain / toothache Cardiac: denies: Chest pain / pressure Respiratory: denies: Dyspnea GI: reports: Abdominal Pain. denies: Nausea, Vomiting : denies: Dysuria PD PAST MEDICAL HISTORY - Past Surgical History Past Surgical History: No - Present Medications Home Medications: Ambulatory Orders Medication Instructions Recorded Confirmed Ondansetron Odt [Zofran] 4 mg TL Q6H PRN #10 tablet 01/01/21 Dicyclomine [Bentyl] 20 mg PO QID #30 cap 05/25/21 Ondansetron Odt [Zofran Odt] 4 mg TL Q6H PRN #10 tablet 05/25/21 - Allergies Allergies/Adverse Reactions: Allergies Allergy/AdvReac Type Severity Reaction Status Date / Time No Known Drug Allergies Allergy Verified 05/25/21 21:51 - Social History Does the pt smoke?: No Smoking Status: Never smoker Does the pt drink ETOH?: No Does the pt have substance abuse?: No - Immunizations Immunizations are current?: Yes - POLST Patient has POLST: No PD ED PE NORMAL - Vitals Vital signs reviewed: Yes - General General: Alert and oriented X 3 - HEENT HEENT: Atraumatic - Neck Neck: Supple, no meningeal sign - Cardiac Cardiac: RRR - Respiratory Respiratory: No respiratory distress - Abdomen Abdomen: Normal bowel sounds - Female Female : Deferred - Rectal Rectal: Deferred - Back Back: No CVA TTP - Derm Derm: Normal color - Extremities Extremities: No deformity - Neuro Neuro: Alert and oriented X 3, 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, No motor deficit Results - Vitals Vitals: Vital Signs - 24 hr 05/25/21 05/25/21 21:49 23:23 Temperature 36.4 C L Heart Rate 73 80 Respiratory 16 18 Rate Blood Pressure 135/68 H 135/81 H O2 Saturation 100 97 Oxygen O2 Source Room air - Labs Labs: Laboratory Tests 05/25/21 05/25/21 05/25/21 21:58 22:05 22:05 WBC 12.3 H RBC 4.32 Hgb 13.0 Hct 38.6 MCV 89.4 MCH 30.1 MCHC 33.7 RDW 13.4 Plt Count 250 MPV 12.0 H Neut # (Auto) 6.0 Lymph # (Auto) 5.2 H [place] # (Auto) 0.7 Eos # (Auto) 0.3 Baso # (Auto) 0.1 Absolute Nucleated RBC 0.00 Band Neuts % (Manual) Not Reportable Abnorm Lymph % (Manual) Not Reportable Nucleated RBC % 0.0 Neutrophils # (Manual) Not Reportable Lymphocytes # (Manual) Not Reportable Monocytes # (Manual) Not Reportable Eosinophils # (Manual) Not Reportable Basophils # (Manual) Not Reportable Differential Comment MANUAL=AUTO DIFF Platelet Estimate NORMAL (130-450,000) Platelet Morphology NORMAL APPEARANCE RBC Morph Micro Appear NORMAL APPEARANCE Sodium 134 L Potassium 3.4 L Chloride 101 Carbon Dioxide 24 Anion Gap 9.0 BUN 11 Creatinine 1.0 Estimated GFR (MDRD) 67 L Glucose 99 Calcium 9.1 Total Bilirubin 0.5 AST 61 H ALT 22 Alkaline Phosphatase 59 Total Protein 7.4 Albumin 4.3 Globulin 3.1 Albumin/Globulin Ratio 1.4 Lipase 32 Urine Color YELLOW Urine Clarity CLEAR Urine pH 6.0 Ur Specific [place] 1.010 Urine Protein NEGATIVE Urine Glucose (UA) NEGATIVE Urine Ketones NEGATIVE Urine Occult Blood NEGATIVE Urine Nitrite NEGATIVE Urine Bilirubin NEGATIVE Urine Urobilinogen 0.2 (NORMAL) Ur Leukocyte Esterase TRACE H Urine RBC 0-5 Urine WBC 4-5 Ur Squamous Epith Cells FEW Squamous Urine Bacteria Rare Ur Microscopic Review INDICATED Urine Culture Comments INDICATED Urine HCG, Qual NEGATIVE PD MEDICAL DECISION MAKING - ED course Complexity details: reviewed results, re-evaluated patient, d/w patient ED course: Patient is otherwise healthy 25-year-old female presenting to the emergency department left lower quadrant abdominal pain. Afebrile, hemodynamically stable. Some minor left lower quadrant abdominal tenderness without guarding, rebound, rigidity noted on physical exam. Labs obtained demonstrated a very minimal leukocytosis as well as a urine analysis positive for trace leukocytes without underlying indications of infection. Patient denied any dysuria or urinary frequency, vaginal discharge or concern for sexually transmitted infection. CT abdomen pelvis nonacute. Patient given IV hydration, Bentyl in the emergency department. Will discharge with medications for symptomatic management. Encourage careful follow-up with primary care or return to the emergency department for new or worsening symptoms Departure - Departure Disposition: 01 Home, Self Care Clinical Impression: Abdominal pain Instructions: ED Abdominal Pain Cause Unkn Fem Ch Prescriptions: Dicyclomine [Bentyl] 20 mg PO QID #30 cap Ondansetron Odt [Zofran Odt] 4 mg TL Q6H PRN #10 tablet PRN Reason: Nausea / Vomiting Comments: Thank you for allowing us to care for you today at [facility]. All of the testing performed in the emergency department including work, urine analysis and the CT scan of your abdomen and pelvis were very reassuring. There are many possible causes of lower abdominal discomfort, as we discussed including viral infection, low level constipation or digestive issues. I will be discharging of some medication to help with your symptoms. Please drink plenty of fluids and get plenty of rest over the course of the next few days. Please make a follow-up appointment with your primary care doctor soon as you are able. If it anytime you develop any new or worsening symptoms please not hesitate to return.
[2021-05-26] MEDS: DICYCLOMINE 10 MG CAPSULE PO STA
[2021-05-26 00:02] VITALS: BP 125/76
== END 2021-05-26 00:02 | disposition home or self-care (01) ==
LOC: ED 21:45
DX: R10.32 Left lower quadrant pain (principal)
CPT/HCPCS: 36415; 74177; 80053; 81001; 81025; 83690; 85025; 87086; 99282; 99284; A9270; Q9967; 81003